=== PATIENT | female | born 1980 | race Caucasian/White ===

== ENCOUNTER 2017-02-04 12:36 | Emergency (ER) | payer OTHER ==
[~2017-02-04] VITALS: Ht 162.6 cm; Wt 122.0 kg
[~2017-02-04 12:36] MED LIST: BEN25 PO
[2017-02-04 12:39] VITALS: Ht 162.6 cm; Wt 122.0 kg
[2017-02-04] MEDS ORDERED: HC30CR25 TOP (13:01)
[2017-02-04] MEDS ORDERED: BEN25 PO (13:01)
[2017-02-04] MEDS ORDERED: PRED20TA PO (13:01)
--- NOTE | 2017-02-04 13:19 | ERD ---
ER Documentation Chief Complaint Chief Complaint ALLERGIC REACTION TO DYE HPI 36-year-old female complaining of allergic reaction after applying hair dye yesterday. Patient states that her scalp is irritated and itchy. Patient is never uses hair dye before. Patient is currently using Benadryl for alleviation however has only had mild relief. Denies any tongue swelling or facial swelling. Denies shortness of breath or troubles breathing. ROS All systems reviewed and are negative except as per history of present illness. Medications Home Meds Active Scripts Prednisone* (Prednisone*) 20 Mg Tab, 40 MG PO DAILY for 4 Days, TAB Prov:CONCHIS ALVAREZ PA-C 02/04/17 Diphenhydramine Hcl* (Benadryl*) 25 Mg Cap, 25 MG PO Q6, #30 CAP Prov:CONCHIS ALVAREZ PA-C 02/04/17 Hydrocortisone* Topical (Hydrocortisone* Topical) 2.5%-28.3 Gm Cream..g., 1 APPLIC TOP BID, #1 TUB Prov:CONCHIS ALVAREZ PA-C 02/04/17 Reported Medications Diphenhydramine Hcl* (Benadryl*) 25 Mg Cap, 25 MG PO Q6H Y for ALLERGIC REACTION , CAP 01/16/14 Allergies Allergies: Coded Allergies: No Known Allergy (Verified , 01/16/14) PMhx/Soc History of Surgery: No Anesthesia Reaction: No Hx Neurological Disorder: No Hx Respiratory Disorders: No Hx Cardiac Disorders: No Hx Psychiatric Problems: No Hx Miscellaneous Medical Probl: No Hx Alcohol Use: No Hx Substance Use: No Hx Tobacco Use: No Physical Exam Vitals Vital Signs Date Time Temp Pulse Resp B/P Pulse Ox O2 Delivery O2 Flow Rate FiO2 02/04/17 12:39 98.8 86 19 129/65 100 Physical Exam GENERAL: The patient is well-appearing, well-nourished, in no acute distress HEENT: Atraumatic. Conjunctivae are pink. Pupils equal, round, and reactive to light. There is no scleral icterus. Tympanic membranes clear bilaterally. Oropharynx clear. No nystagmus or photophobia. CHEST: Clear to auscultation bilaterally. There are no rales, wheezes or rhonchi. HEART: Regular rate and rhythm. No murmurs, clicks, rubs or gallops. No S3 or S4. SKIN: Erythema noted to the scalp. With no vesicles. No pustules. Procedures/MDM MDM: 86-year-old female complaining of erythema and irritation to her scalp. I have low suspicion for life-threatening allergic reaction. I have low suspicion for anaphylaxis. I have low suspicion for bacterial skin infection secondary to contact dermatitis. Patient's skin is irritated secondary to hair dye. Patient is recommended to take oral steroids to alleviate irritation. Patient is told to follow-up with primary care within 1-2 days for close evaluation. Patient is told if symptoms change or worsen to return to the ER. All questions answered discharge. Departure Diagnosis: Primary Impression: Contact dermatitis Condition: Stable Patient Instructions: Contact Dermatitis Referrals: SAIRA DANIELS MD (PCP) Additional Instructions: FOLLOW UP WITH YOUR PRIMARY CARE PHYSICIAN TOMORROW.Return to this facility if you are not improving as expected. CONCHIS ALVAREZ PA-C Feb 04, 2017 13:19
== END 2017-02-04 13:08 | disposition home or self-care (01) ==
LOC: FTE 12:36
DX: L25.9 Unspecified contact dermatitis, unspecified cause (principal)
CPT/HCPCS: 99283

== ENCOUNTER 2017-09-12 10:24 | Emergency (ER) | END 2017-09-12 11:20 | disposition home or self-care (01) ==

== ENCOUNTER 2018-01-15 09:24 | Emergency (ER) | END 2018-01-15 12:01 | disposition home or self-care (01) ==